=== PATIENT | female | born 1960 | race Caucasian/White ===

== ENCOUNTER 2024-01-29 11:08 | Outpatient (CLI) | payer OTHER, SELFPAY ==
--- NOTE | ~2024-01-29 | XR_ITS ---
EXAMINATION: XR chest 2V 01/29/2024 11:35 INDICATION: Right rib pain for 2 years PROCEDURE: 2 view chest COMPARISON: No prior studies for comparison. FINDINGS: The lungs are clear. The cardiomediastinal silhouette is within normal limits. There are no pleural effusions. There is no pneumothorax suspected. IMPRESSION: 1: NO ACUTE CARDIOPULMONARY DISEASE. Reviewed, dictated and finalized at location B.
--- NOTE | ~2024-01-29 | XR_ITS ---
3 VIEWS THORACIC SPINE Ordering provider: Valencia Staton APRN History: . right rib pain, RUQ pain X 2 YRS AGO . Comparison: None. FINDINGS: VERTEBRAL BODIES: Normal height and alignment. No visible fracture or subluxation. DISK SPACES: Normal. SOFT TISSUES: Normal. IMPRESSION: No acute osseous abnormality of the thoracic spine. Reviewed, dictated and finalized at location A.
== END 2024-01-29 11:09 | disposition home or self-care (01) ==
PROVIDERS: PCP Nurse Practitioner Family; Visit Provider Nurse Practitioner
DX: R10.11 Right upper quadrant pain (principal); R07.81 Pleurodynia
CPT/HCPCS: 71046; 72070

== ENCOUNTER 2024-03-04 08:03 | Outpatient (CLI) | payer OTHER, SELFPAY ==
--- NOTE | ~2024-03-04 | XR_ITS ---
EXAMINATION: XR UGIAC w small bowel DATE: 03/04/2024 09:41 INDICATION: Postprandial right upper quadrant abdominal pain radiating to the back. TECHNIQUE: The patient drank thick barium, gas-producing crystals, and thin barium. Fluoroscopy of th e esophagus, stomach, and small bowel was performed. Fluoroscopy exposure time was 0.9 minutes. Radio graphs of the abdomen were obtained. The total number of images was 281. COMPARISON: None. FINDINGS: UPPER GASTROINTESTINAL SERIES: There is no mass or stricture of the esophagus. Esophageal motility is normal. There is no hiatal her anastacia. There was no gastroesophageal reflux with provocative maneuvers. The stomach shows a normal fold ing pattern. Surgical clips in the right upper quadrant are likely from cholecystectomy. SMALL BOWEL SERIES: The small bowel shows a normal folding pattern. Specifically, the terminal ileum is normal. Transit t reinaldo to the colon was 45 minutes. IMPRESSION: 1. Normal gastrointestinal series. 2. Normal small bowel series. Reviewed, dictated and finalized at location A.
== END 2024-03-04 08:04 | disposition home or self-care (01) ==
LOC: ANHIMG 08:06
PROVIDERS: PCP Nurse Practitioner Family; Visit Provider Nurse Practitioner
DX: R10.11 Right upper quadrant pain (principal)
CPT/HCPCS: 74246; 74248

== ENCOUNTER 2024-03-22 08:02 | Outpatient (CLI) | payer OTHER, SELFPAY ==
--- NOTE | ~2024-03-22 | NM_ITS ---
EXAMINATION: NM hepatobiliary wo pharm DATE: 03/22/2024 11:29 INDICATION: Right quadrant abdominal pain. COMPARISON: None. TECHNIQUE: 4.7 mCi Tc-99m mebrofenin (Choletec) was administered intravenously. Scintigraphic images of the abdomen were obtained for 1.5 hours. FINDINGS: There is normal clearance of radiotracer from the blood pool. There is homogeneous tracer u ptake by the liver. Activity progresses to the bowel. The gallbladder is absent. IMPRESSION: 1. Normal hepatobiliary scintigraphy status post cholecystectomy. Reviewed, dictated and finalized at location A.
== END 2024-03-22 08:03 | disposition home or self-care (01) ==
LOC: ANHIMG 08:05
PROVIDERS: PCP Nurse Practitioner Family; Visit Provider Nurse Practitioner
DX: R10.11 Right upper quadrant pain (principal); Z90.49 Acquired absence of other specified parts of digestive tract
CPT/HCPCS: 78226; A9537